=== PATIENT | female | born 1990 | race Caucasian/White ===

== ENCOUNTER 2017-10-19 10:02 | Emergency (ER) | payer OTHER ==
[2017-10-19] MEDS ORDERED: Ondansetron ODT TAB* 4 MG PO ONE (10:19)
[2017-10-19] MEDS ORDERED: NS 0.9% 1000 ML* 1,000 ML IV SCH (11:15)
--- NOTE | 2017-10-19 11:19 | UC ---
Abdominal Pain Female HPI - HPI Summary HPI Summary: Patient is visiting from [place], [place] and arrived yesterday. This morning she woke up with nausea, vomiting and diarrhea. Not bloody. Denies any recent antibiotics or medication changes. No unusual food exposure. Is 7 months and has had an uneventful . No fever or URI symptoms. No headaches or abdominal cramping. Baby is moving well. No bleeding or loss of fluid. - History of Current Complaint Chief Complaint: UCGI Stated Complaint: VOMITING, AND DIARRHEA Time Seen by Provider: 10/19/17 10:46 Hx Obtained From: Patient, Family/Engine Repair Supervisor - MOM AND GRANDMA Onset/Duration: Sudden Onset, Lasting Hours, Still Present Severity Initially: Moderate Severity Currently: Moderate Pain Intensity: 3 Pain Scale Used: 0-10 Numeric Radiates: No Aggravating Factor(s): Nothing Alleviating Factor(s): Nothing Associated Signs and Symptoms: Positive: Nausea, Vomiting, Diarrhea. Negative: Fever, Dizzy, Back Pain, Blood in Stool, Urinary Symptoms, Vaginal Bleeding, Vaginal Discharge Allergies/Adverse Reactions: Allergies Allergy/AdvReac Type Severity Reaction Status Date / Time No Known Allergies Allergy Verified 10/19/17 10:31 Home Medications: Home Medications [place]-3 Fatty Acids/Fish Oil [Fish Oil 1,000 mg Capsule] 1 each PO 10/19/17 [ History] Pnv No.95/Ferrous Fum/Folic AC [ Tablet] 1 tab PO 10/19/17 [History] PMH/Surg Hx/FS Hx/Imm Hx Previously Healthy: Yes - Surgical History Surgical History: None - Family History Known Family History: Positive: Hypertension - Social History Alcohol Use: None Substance Use Type: None Smoking Status (MU): Never Smoked Tobacco Review of Systems Constitutional: Negative Respiratory: Negative Cardiovascular: Negative Gastrointestinal: Vomiting, Diarrhea, Nausea Genitourinary: Negative All Other Systems Reviewed And Are Negative: Yes Physical Exam Triage Information Reviewed: Yes Appearance: Well-Appearing, No Pain Distress, Well-Nourished Vital Signs: Initial Vital Signs Temp 96.5 F 10/19/17 10:27 Pulse 99 10/19/17 10:27 Resp 18 10/19/17 10:27 BP 128/72 10/19/17 10:27 Pulse Ox 99 10/19/17 10:27 Laboratory Tests 10/19/17 13:17 POC Urine Color [place] POC Urine Clarity Clear POC Urine pH 6.0 POC Ur Specif [place] 1.020 POC Urine Protein Negative POC Ur Glucose (UA) Negative POC Urine Ketones 4+ A POC Urine Blood Negative POC Urine Nitrite Negative POC Urine Bilirubin Negative POC Urine Urobilinogen 0.2 POC U Leukocyte Esteras Negative Vital Signs Reviewed: Yes Eyes: Positive: Conjunctiva Clear ENT: Positive: Hearing grossly normal Neck: Positive: Supple, Nontender, No Lymphadenopathy Respiratory Exam: Normal Abdomen Description: Positive: Nontender, Soft, Other: - GRAVID. FHT 140s AND REGULAR. Negative: CVA Tenderness (R), CVA Tenderness (L), Guarding Bowel Sounds: Positive: Present Musculoskeletal: Positive: No Edema Neurological: Positive: Alert Psychological: Positive: Normal Response To Family, Age Appropriate Behavior Skin: Negative: rashes Re-Evaluation - Re-Evaluation First Eval Re-Evaluation Time: 11:00 - FEELS IMPROVED AFTER 4MG ZOFRAN PO Change: Improved Second Eval Re-Evaluation Time: 13:15 - FEELS EVEN BETTER AFTER 1L NS. READY FOR D/C Change: Improved Abd Pain Female Course/Dx - Differential Dx/Diagnosis Provider Diagnoses: ACUTE NAUSEA/VOMITING IN Discharge - Sign-Out/Discharge Documenting (check all that apply): Patient Departure All imaging exams completed and their final reports reviewed: No Studies - Discharge Plan Condition: Stable Disposition: HOME Prescriptions: Ondansetron ODT TAB* [Zofran Odt TAB*] 4 mg PO Q6H PRN #12 tab.odt PRN Reason: Nausea/Vomiting Patient Education Materials: Acute Nausea and Vomiting (ED) Referrals: No Primary Care Phys,NOPCP [Primary Care Provider] - Additional Instructions: YOU FELT BETTER AFTER 1 L OF NORMAL SALINE AND 4 MG OF ZOFRAN. FIRST LINE TREATMENT FOR NAUSEA IN IS DOXYLAMINE 10 MG AND VITAMIN B6 10 MG. YOU CAN BUY UNISOM AND VITAMIN B6 OTC TO MAKE YOUR OWN. IF NOT EFFECTIVE I HAVE SENT SOME ZOFRAN IN FOR YOU. GO TO THE ED WITHOUT FAIL IF YOU DEVELOP WORSENING NAUSEA/VOMITING, FEVER, ABDOMINAL PAIN, HEADACHES, VISUAL DISTURBANCES, SWELLING OR OTHER CONCERNING SYMPTOMS. OR IF THE BABY STOPS MOVING OR YOU HAVE VAGINAL BLEEDING OR LOSS OF FLUID. FOLLOW-UP WITH YOUR OB BACK IN [place] WHEN YOU RETURN. - Billing Disposition and Condition Condition: STABLE Disposition: Home
[2017-10-19 13:26] VITALS: BP 127/65
== END 2017-10-19 13:33 | disposition home or self-care (01) ==
LOC: UCEAST 10:02
DX: O21.2 Late vomiting of pregnancy (principal); R19.7 Diarrhea, unspecified; Z3A.30 30 weeks gestation of pregnancy
CPT/HCPCS: 81003; 96360; 99202; A9270-GY; G0463